=== PATIENT | female | born 1990 | race African-American/Black ===

== ENCOUNTER 2016-12-18 22:12 | Emergency (ER) ==
[2016-12-18 22:23] VITALS: BP 111/64; TEMP 98.5; BMI 40.9
--- NOTE | 2016-12-18 22:39 | ED.PDOC ---
General ED Provider: Dr. JOSÉ MIGUEL AG Chief Complaint: Sore Throat Stated Complaint: Patient is a 26 year old female who was seen in the clinic recently for insect bites and given steroids and Keflex. Today she started having a sore throat and could not go to work. Time Seen by Physician: 22:32 Mode of Arrival: Walk-In Information Source: Patient Exam Limitations: No limitations Nursing and Triage Documentation Reviewed and Agree: Yes Review of Systems - Review Of Systems Constitutional: Reports: No symptoms Eyes: Reports: No symptoms Ears, Nose, Mouth, Throat: Reports: Throat pain Respiratory: Reports: Cough Cardiac: Reports: No symptoms GI: Reports: No symptoms : Reports: No symptoms Musculoskeletal: Reports: No symptoms Skin: Reports: Rash Neurological: Reports: No symptoms Endocrine: Reports: No symptoms Hematologic/Lymphatic: Reports: No symptoms All Other Systems: Reviewed and Negative Past Medical History - Past Medical History Endocrine: Reports: None Cardiovascular: Reports: None Respiratory: Reports: Bronchitis Hematological: Reports: None Gastrointestinal: Reports: None Genitourinary: Reports: None Neuro/Psych: Reports: None Musculoskeletal: Reports: None Cancer: Reports: None Last Menstrual Period: 11/25/16 Other Pertinent Past Medical History: enlarged heart, bronchitis several times, borderline diabetic - Surgical History General Surgical History: Reports: ( x2) - Family History Family History: Reports: None - Social History Smoking Status: Current every day smoker Hx Substance Use: No Alcohol Screening: Occasionally - Immunizations Tetanus Shot up to Date: Yes Physical Exam - Physical Exam Appearance: Ill-appearing, Well-nourished Ill-appearing: Mild Pain Distress: Mild Eyes: GIA, EOMI, Conjunctiva clear ENT: Ears normal, Nose normal, Oropharynx normal Neck: Supple Respiratory: Airway patent, Breath sounds clear, Breath sounds equal, Respirations nonlabored Cardiovascular: RRR, Pulses normal, No rub, No murmur GI/: Soft, Nontender, No masses, Bowel sounds normal, No Organomegaly Musculoskeletal: Normal strength, ROM intact, No edema, No calf tenderness Skin: Warm, Dry, Normal color Neurological: Sensation intact, Motor intact, Reflexes intact, Cranial nerves intact, Alert, Oriented Psychiatric: Affect appropriate, Mood appropriate Critical Care Note - Critical Care Note Total Time (mins): 0 Course - Course Vital Signs: Temp Pulse Resp BP Pulse Ox 12/18/16 22:15 98.5 F 83 20 111/64 96 Departure - Departure Time of Disposition: 22:44 Disposition: HOME SELF-CARE Discharge Problem: Viral URI with cough Pharyngitis Qualifiers: Pharyngitis/tonsillitis etiology: other specified organisms Qualifier Code: ( J02.8) Acute pharyngitis due to other specified organisms Instructions: Upper Respiratory Infection (ED), Pharyngitis (ED) Condition: Stable Pt referred to PMD for follow-up: Yes Additional Instructions: Continue home medication follow up with the clinic as needed Allergies/Adverse Reactions: Allergies No Known Allergies Allergy (Verified 12/18/16 22:23) Home Medications: Ambulatory Orders Ibuprofen 800 mg PO PRN 11/19/16 Sertraline HCl [Zoloft] 25 mg PO DIRECTED 12/18/16 Disposition Discussed With: Patient
== END 2016-12-18 22:54 | disposition home or self-care (01) ==
LOC: ED 22:12
DX: J06.9 Acute upper respiratory infection, unspecified (principal); R05 Cough; J02.9 Acute pharyngitis, unspecified; F17.210 Nicotine dependence, cigarettes, uncomplicated
CPT/HCPCS: 99282